=== PATIENT | male | born 1940 | race Caucasian/White ===

== ENCOUNTER 2019-10-17 08:24 | Day surgery (SDC) | payer MEDICARE, BC ==
[~2019-10-17 08:24] MED LIST: EPINEPHrine 1:10,000 1 MG/10 ML Syringe ONE; Midazolam 1 MG/ML 2 ML SDV ONE; Propofol 200 MG/20 ML SDV ONE; Sodium Chloride 0.9% 10 ML Syringe FLUSH PRN
[2019-10-17] MEDS ORDERED: Propofol 200 MG/20 ML SDV ONE (08:40)
[2019-10-17] MEDS: Sodium Chloride 0.9% 1,000 ML IV SCH (08:54)
[2019-10-17] MEDS ORDERED: Midazolam 1 MG/ML 2 ML SDV IV ONE (09:19)
[2019-10-17] MEDS ORDERED: Propofol 200 MG/20 ML SDV IV ONE (09:19)
[2019-10-17] MEDS: EPINEPHrine 1:10,000 1 MG/10 ML Syringe ONE (09:44)
--- NOTE | 2019-10-17 10:46 | PCM.OPNOTE ---
- General Post-Op/Procedure Note Date of Surgery/Procedure: 10/17/19 Operative Procedure(s): Colonoscopy with multiple polypectomies anesthesia IV sedation. Anesthesia Technique: MAC Primary Surgeon: Rafia Chung Complications: None Condition: Good Free Text/Narrative:: INFORMED CONSENT: Patient is here today for elective colonoscopy. All aspects of this procedure have been discussed with the patient. All possible complications also, including possibility of perforation, infection, pain, bleeding and unknown complications. In the event of perforation patient may need to have abdominal exploration, colon resection, colostomy and even was discussed. Anesthetic complications were handled by anesthesia department. The patient understands fully well. Patient did not have any further questions for me at the end of my interview. The patient wishes for me to proceed. PREOPERATIVE DIAGNOSIS/INDICATIONS: [Rectal bleeding] POSTOPERATIVE DIAGNOSIS: [Multiple colon polyps noted.] INSTRUMENT USED: [employer] videocolonoscope. ASA CLASSIFICATION: [2] ANESTHESIA: Continuous EKG, oximetry and intermittent blood pressure and respiratory monitoring were performed throughout the procedure. IV Versed and Fentanyl were administered. PROCEDURE PERFORMED: Colonoscopy POSITIONS OF PATIENT: Left lateral. RECTUM: Flat polyp was identified at 42 cm and removed using snare and electrocautery.. SIGMOID COLON: Multiple diverticula were seen, some of them are large. Polyps were identified at 42 and 50 cm. Polypectomies were performed using loop and electrocautery to injecting the base with 1/10,000 epinephrine solution. DESCENDING COLON: Polyps are identified at 35 cm and 70 cm.. SPLENIC FLEXURE: Normal. TRANSVERSE COLON: A single large polyp was identified at 95 cm and removed using a snare, electrocautery and injection with 1/10,000 epinephrine. Duration. HEPATIC FLEXURE: Normal. ASCENDING COLON: Normal. CECUM: Normal. ILEOCECAL VALVE: Normal. BIOPSY: None. TOLERANCE: Excellent. COMPLICATIONS: None. Final diagnosis: Large diverticulosis of the colon and multiple polyps as described above. Polypectomies were performed using injection of epinephrine, loop and electrocautery.
== END 2019-10-17 12:00 | disposition home or self-care (01) ==
LOC: KA.SDS 08:24
PROVIDERS: ATTEND Family Medicine
DX: D12.5 Benign neoplasm of sigmoid colon (principal); D12.4 Benign neoplasm of descending colon; D12.3 Benign neoplasm of transverse colon; D12.8 Benign neoplasm of rectum; K57.30 Diverticulosis of large intestine without perforation or abscess without bleeding; E11.22 Type 2 diabetes mellitus with diabetic chronic kidney disease; I12.9 Hypertensive chronic kidney disease with stage 1 through stage 4 chronic kidney disease, or unspecified chronic kidney disease; N18.3 Chronic kidney disease, stage 3 (moderate); D63.1 Anemia in chronic kidney disease; F17.210 Nicotine dependence, cigarettes, uncomplicated; E78.00 Pure hypercholesterolemia, unspecified; E66.9 Obesity, unspecified; Z11.59 Encounter for screening for other viral diseases; Z79.899 Other long term (current) drug therapy; Z79.84 Long term (current) use of oral hypoglycemic drugs; Z68.32 Body mass index [BMI] 32.0-32.9, adult
CPT/HCPCS: 00811; 82962; 88305; J0171; J2250; J2704; J7030; U0002